=== PATIENT | female | born 1995 | race Caucasian/White ===

== ENCOUNTER 2022-03-13 20:05 | Emergency (ER) | payer OTHER ==
[~2022-03-13] VITALS: Ht 167.6 cm; Wt 59.0 kg
[2022-03-13] MEDS ORDERED: CODE30TA PO (21:40)
== END 2022-03-13 21:48 | disposition home or self-care (01) ==
LOC: ER 20:05
DX: S93.601A Unspecified sprain of right foot, initial encounter (principal); W22.8XXA Striking against or struck by other objects, initial encounter; Y92.89 Other specified places as the place of occurrence of the external cause; Z88.6 Allergy status to analgesic agent; Z88.0 Allergy status to penicillin
CPT/HCPCS: 73630; A4663

== ENCOUNTER 2025-01-03 14:22 | Emergency (ER) | payer OTHER ==
[~2025-01-03] VITALS: Ht 167.6 cm; Wt 65.8 kg
[~2025-01-03 14:22] MED LIST: CODE30TA PO
[2025-01-03 16:10] LABS: CREATININE 0.6 mg/dL (0.6-1.3); SODIUM SERUM 142.0 mmol/L (136-145); UREA NITROGEN, BLOOD 11.0 mg/dL (7-18)
[2025-01-03 16:12] LABS: PLATELET COUNT (AUTO) 303 K/uL (179-408); RED BLOOD CELL COUNT(AUTO) 4.23 MIL/uL (3.63-4.92); RED CELL DISTRIBUTION WIDTH 12.7 % (12.3-17.7); WHITE BLOOD COUNT (AUTO) 6.5 K/uL (3.8-11.8)
[2025-01-03 16:28] LABS: PREGNANCY TEST SERUM QUAN 4.0 miul/L (0-6)
[2025-01-03 17:15] VITALS: BP 122/85
[2025-01-03 17:32] VITALS: BP 122/85; TEMP 98.1; O2SAT 99
== END 2025-01-03 17:33 | disposition home or self-care (01) ==
LOC: ER 14:22
DX: N93.9 Abnormal uterine and vaginal bleeding, unspecified (principal); D25.9 Leiomyoma of uterus, unspecified; F41.9 Anxiety disorder, unspecified; Z88.0 Allergy status to penicillin; Z60.2 Problems related to living alone
CPT/HCPCS: 36415; 76856; 85025; 86850; 86900; 86901; A4606; A4663